=== PATIENT | female | born 1965 | race Two or more races ===

== ENCOUNTER 2023-04-21 16:19 | Inpatient (IN) | payer MEDICAID, OTHER ==
[~2023-04-21] VITALS: Ht 170.2 cm; Wt 80.7 kg
[2023-04-21 17:20] LABS: Basophils # (auto) 0.1 10 ^3/uL (0-0.2); Basophils % (auto) 0.7 % (0.0-2.0); Eosinophils # (auto) 0.3 10 ^3/uL (0-0.8); Eosinophils % (auto) 2.7 % (0.0-7.0); Hematocrit 35.7 % (36.0-46.0); Hemoglobin 12.6 g/dL (12.2-16.2); Lymphocytes # (auto) 1.3 10 ^3/uL (0.4-5.4); Mean Corpuscular Hemoglobin 34.3 pg (28.0-32.0); Mean Corpuscular Hgb Conc. 35.3 g/dL (32.0-36.0); Mean Corpuscular Volume 97.4 fL (80.0-100.0); Monocytes % (auto) 11.2 % (0.0-12.0); Neutrophils # (auto) 6.7 10 ^3/uL (1.6-8.6); Neutrophils % (auto) 71.4 % (37.0-80.0); Nucleated Red Blood Cells % 0.1 %; Red Blood Cells 3.66 10^6/uL (4.0-5.20); Red Cell Distribution Width 13.5 % (11.8-14.3); White Blood Cell 9.4 10^3/uL (4.4-10.8)
[2023-04-21 17:48] LABS: Albumin 2.6 g/dL (3.4-5.0); BUN/Creatinine Ratio 26.3 (10.0-20.0); Calcium 8.2 mg/dL (8.5-10.1); Potassium 4.8 mmol/L (3.5-5.1)
[2023-04-21 17:51] LABS: Bilirubin, Total 1.7 mg/dL (0.2-1.0); Total Protein 6.8 g/dL (6.4-8.2)
[2023-04-21] MEDS ORDERED: SODIUM CHLORIDE 0.9% 500 ML IV ONE (19:00)
[2023-04-21 20:29] LABS: Urine Bacteria NONE SEEN /hpf (None Seen); Urine Blood Negative /uL (Negative); Urine Specific Gravity 1.015 (1.001-1.035); Urine WBC 3 /hpf (0 - 5)
[2023-04-21] MEDS ORDERED: FURO40TA4 PO (21:39)
[2023-04-21] MEDS ORDERED: SPIR100T4 PO (21:39)
[2023-04-21] MEDS ORDERED: METOCLOPRAMIDE HCL 5MG/ml INJ 2ml VIAL IV PRN (21:45)
[2023-04-21] MEDS: ASCORBIC ACID 500 MG TAB PO SCH (22:00)
[2023-04-21] MEDS: MORPHINE SULFATE INJ 2 MG/ml SYRG IV PRN (22:45)
[2023-04-21] MEDS: SODIUM CHLORIDE 0.9% 1,000 ML IV SCH (22:59)
[2023-04-22 06:05] LABS: Basophils # (auto) 0 10 ^3/uL (0-0.2); Basophils % (auto) 0.2 % (0.0-2.0); Hemoglobin 11.4 g/dL (12.2-16.2); Mean Corpuscular Volume 96.6 fL (80.0-100.0); Red Cell Distribution Width 13.1 % (11.8-14.3)
[2023-04-22 06:07] LABS: Eosinophils # (auto) 0.1 10 ^3/uL (0-0.8); Eosinophils % (auto) 1.4 % (0.0-7.0); Hematocrit 31.5 % (36.0-46.0); Lymphocytes # (auto) 1.3 10 ^3/uL (0.4-5.4); Lymphocytes % (auto) 12.7 % (10.0-50.0); Mean Corpuscular Hgb Conc. 36.2 g/dL (32.0-36.0); Monocytes # (auto) 0.9 10 ^3/uL (0-1.3); Monocytes % (auto) 9.2 % (0.0-12.0); Neutrophils # (auto) 7.6 10 ^3/uL (1.6-8.6); Neutrophils % (auto) 76.5 % (37.0-80.0); Red Blood Cells 3.26 10^6/uL (4.0-5.20)
[2023-04-22] MEDS: SODIUM CHLORIDE 0.9% 1,000 ML IV SCH ×3 (06:09→22:42)
[2023-04-22 06:24] LABS: Calcium 7.6 mg/dL (8.5-10.1); Potassium 4.7 mmol/L (3.5-5.1)
[2023-04-22 06:26] LABS: BUN/Creatinine Ratio 31.6 (10.0-20.0)
[2023-04-22 06:39] LABS: Bilirubin, Total 2.8 mg/dL (0.2-1.0); Total Protein 5.7 g/dL (6.4-8.2)
[2023-04-22] MEDS ORDERED: SODIUM CHLORIDE 1 GM TAB PO ONE (07:15)
[2023-04-22] MEDS ORDERED: SODIUM CHL 3% 250 ML IV ONE (08:15)
[2023-04-22 09:06] LABS: Sodium Urine < 5 mmol/L (40-220)
[2023-04-22 09:11] LABS: Creatinine, Urine 75 mg/dL (30.0-125.0); Protein, Urine 6.3 mg/dL (0.0-11.9)
[2023-04-22] MEDS: ASCORBIC ACID 500 MG TAB PO SCH ×2 (09:57→20:26)
[2023-04-22] MEDS: ZINC SULFATE 220mg CAP or TAB PO SCH (09:57)
[2023-04-22] MEDS: MULTIPLE VITAMIN TAB PO SCH (09:57)
[2023-04-22 10:15] LABS: INR 1.24 (0.9-1.15); Partial Thromboplastin Time 33.3 sec (24.6-33.4)
[2023-04-22] MEDS: ENOXAPARIN SOD 40 MG/0.4 ML SYRINGE SC SCH ×2 (11:06→11:08)
[2023-04-22] MEDS ORDERED: LIDOCAINE 1% (LOCAL ANESTH.) PF 5ml SDV ID ONE (12:00)
[2023-04-22 13:25] LABS: BUN/Creatinine Ratio 28.2 (10.0-20.0); Calcium 7.9 mg/dL (8.5-10.1); Potassium 4.3 mmol/L (3.5-5.1)
[2023-04-22 18:18] VITALS: BP 126/66
[2023-04-22 19:52] LABS: BUN/Creatinine Ratio 21.2 (10.0-20.0); Calcium 7.5 mg/dL (8.5-10.1); Potassium 4.2 mmol/L (3.5-5.1)
[2023-04-22] MEDS: SODIUM CHLOR 0.9% PF (SALINE LOCK) 10ML VIAL/SYR IV SCH (20:27)
[2023-04-22 22:00] VITALS: BP 121/59
[2023-04-23] MEDS: MORPHINE SULFATE INJ 2 MG/ml SYRG IV PRN (01:11)
[2023-04-23 05:00] VITALS: BP 110/54
[2023-04-23 06:27] LABS: BUN/Creatinine Ratio 28.6 (10.0-20.0); Calcium 7.5 mg/dL (8.5-10.1); Phosphorus 2.4 mg/dL (2.5-4.90); Potassium 4.8 mmol/L (3.5-5.1)
[2023-04-23] MEDS: SODIUM CHLORIDE 0.9% 1,000 ML IV SCH ×3 (06:51→21:00)
[2023-04-23 09:00] VITALS: BP 108/62
[2023-04-23] MEDS: ZINC SULFATE 220mg CAP or TAB PO SCH (09:04)
[2023-04-23] MEDS: SODIUM CHLOR 0.9% PF (SALINE LOCK) 10ML VIAL/SYR IV SCH ×2 (09:04→21:00)
[2023-04-23] MEDS: MULTIPLE VITAMIN TAB PO SCH (09:04)
[2023-04-23] MEDS: ASCORBIC ACID 500 MG TAB PO SCH ×2 (09:04→21:00)
[2023-04-23] MEDS: ENOXAPARIN SOD 40 MG/0.4 ML SYRINGE SC SCH (09:05)
[2023-04-23] MEDS ORDERED: LACTULOSE 20Gm/30ML SOLN PO ONE (10:15)
[2023-04-23 12:39] VITALS: BP 112/63
[2023-04-23 16:45] VITALS: BP 107/63
[2023-04-23 22:00] VITALS: BP 104/54
[2023-04-24] MEDS: MORPHINE SULFATE INJ 2 MG/ml SYRG IV PRN ×3 (01:04→21:38)
[2023-04-24 05:00] VITALS: BP 102/58
[2023-04-24] MEDS: SODIUM CHLORIDE 0.9% 1,000 ML IV SCH (08:05)
[2023-04-24 08:09] VITALS: BP 100/53
[2023-04-24] MEDS: ENOXAPARIN SOD 40 MG/0.4 ML SYRINGE SC SCH (08:25)
[2023-04-24] MEDS: MULTIPLE VITAMIN TAB PO SCH (08:33)
[2023-04-24] MEDS: SODIUM CHLOR 0.9% PF (SALINE LOCK) 10ML VIAL/SYR IV SCH ×2 (08:33→21:33)
[2023-04-24] MEDS: ZINC SULFATE 220mg CAP or TAB PO SCH (08:33)
[2023-04-24] MEDS: ASCORBIC ACID 500 MG TAB PO SCH ×2 (08:33→21:32)
[2023-04-24 14:09] VITALS: BP 101/59
[2023-04-24] MEDS: SODIUM CHLORIDE 1 GM TAB PO SCH ×2 (14:13→21:32)
[2023-04-24 16:30] VITALS: BP 103/66
[2023-04-24 22:00] VITALS: BP 112/60
[2023-04-25 05:00] VITALS: BP 115/68
[2023-04-25] MEDS: SODIUM CHLORIDE 1 GM TAB PO SCH ×2 (05:36→13:31)
[2023-04-25] MEDS: ENOXAPARIN SOD 40 MG/0.4 ML SYRINGE SC SCH (07:29)
[2023-04-25 09:06] VITALS: BP 96/50
[2023-04-25] MEDS: ZINC SULFATE 220mg CAP or TAB PO SCH (09:09)
[2023-04-25] MEDS: MULTIPLE VITAMIN TAB PO SCH (09:09)
[2023-04-25] MEDS: ASCORBIC ACID 500 MG TAB PO SCH (09:09)
[2023-04-25] MEDS: SODIUM CHLOR 0.9% PF (SALINE LOCK) 10ML VIAL/SYR IV SCH ×2 (09:14→21:49)
[2023-04-25 09:36] LABS: Eosinophils # (auto) 0.2 10 ^3/uL (0-0.8); Eosinophils % (auto) 2.3 % (0.0-7.0); Lymphocytes % (auto) 12.7 % (10.0-50.0); Neutrophils % (auto) 77.1 % (37.0-80.0)
[2023-04-25 09:41] LABS: Basophils # (auto) 0 10 ^3/uL (0-0.2); Basophils % (auto) 0.5 % (0.0-2.0); Hematocrit 30.1 % (36.0-46.0); Hemoglobin 10.5 g/dL (12.2-16.2); Mean Corpuscular Hemoglobin 34.7 pg (28.0-32.0); Mean Corpuscular Volume 99.2 fL (80.0-100.0); Monocytes # (auto) 0.6 10 ^3/uL (0-1.3); Monocytes % (auto) 7.4 % (0.0-12.0); Neutrophils # (auto) 5.8 10 ^3/uL (1.6-8.6); Nucleated Red Blood Cells % 0.1 %; Red Blood Cells 3.03 10^6/uL (4.0-5.20); Red Cell Distribution Width 13.4 % (11.8-14.3); White Blood Cell 7.6 10^3/uL (4.4-10.8)
[2023-04-25 10:03] LABS: Albumin 2.1 g/dL (3.4-5.0); Calcium 7.1 mg/dL (8.5-10.1); Potassium 4.4 mmol/L (3.5-5.1)
[2023-04-25 10:07] LABS: BUN/Creatinine Ratio 14.3 (10.0-20.0); Total Protein 5.7 g/dL (6.4-8.2)
[2023-04-25] MEDS: ALBUMIN 25% 100 ML IV SCH ×2 (11:34→13:26)
[2023-04-25 13:00] VITALS: BP 98/50
[2023-04-25 15:25] VITALS: BP 93/50
[2023-04-25] MEDS ORDERED: FUROSEMIDE 40 MG/4 ML VIAL IV ONE (18:00)
[2023-04-25] MEDS: MAALOX PLUS or MAALOX 30 ML PO PRN (21:49)
[2023-04-25] MEDS: ACETAMINOPHEN 325 MG TAB PO PRN (21:49)
[2023-04-25 22:00] VITALS: BP 92/36
[2023-04-26] MEDS: MAALOX PLUS or MAALOX 30 ML PO PRN (03:59)
[2023-04-26] MEDS: ACETAMINOPHEN 325 MG TAB PO PRN (03:59)
[2023-04-26 05:00] VITALS: BP 102/28
[2023-04-26 08:46] VITALS: BP 94/45
[2023-04-26] MEDS: SODIUM CHLOR 0.9% PF (SALINE LOCK) 10ML VIAL/SYR IV SCH (09:33)
[2023-04-26] MEDS: ENOXAPARIN SOD 40 MG/0.4 ML SYRINGE SC SCH (09:33)
[2023-04-26] MEDS: MULTIPLE VITAMIN TAB PO SCH (09:39)
[2023-04-26] MEDS ORDERED: FUROSEMIDE 40 MG/4 ML VIAL IV SCH (10:00)
[2023-04-26 12:39] VITALS: BP 94/51
== END 2023-04-26 14:31 | disposition home or self-care (01) | DRG 280 ==
LOC: ER 16:19 → OVERFLOW 21:39 → WEST WING 04-22 18:00 → TELE-WESTW 04-23 02:12
PROVIDERS: ADMIT Nurse Practitioner Family; ATTEND Family Medicine
PROC: 02HV33Z Insertion of Infusion Device into Superior Vena Cava, Percutaneous Approach (ICD-10-PCS; principal; 2023-04-22)
PROC: B548ZZA Ultrasonography of Superior Vena Cava, Guidance (ICD-10-PCS; 2023-04-22)
PROC: 0W9G3ZZ Drainage of Peritoneal Cavity, Percutaneous Approach (ICD-10-PCS; 2023-04-25)
DX: K70.31 Alcoholic cirrhosis of liver with ascites (principal); E87.1 Hypo-osmolality and hyponatremia; E86.0 Dehydration; K42.9 Umbilical hernia without obstruction or gangrene; F10.10 Alcohol abuse, uncomplicated; Y90.9 Presence of alcohol in blood, level not specified
CPT/HCPCS: 36415; 36569; 71045; 74176; 76705; 76942; 80048; 80053; 81001; 82570; 83615; 83935; 83986; 84100; 84156; 84300; 84443; 85018; 85025; 85610; 85730; 87205; 89051; 99291; G0378; P9047

== ENCOUNTER 2023-05-10 15:57 | Emergency (ER) | payer MEDICAID ==
[~2023-05-10] VITALS: Ht 170.2 cm; Wt 71.6 kg
[~2023-05-10 15:57] MED LIST: FURO40TA4 PO; SPIR100T4 PO
[2023-05-10 16:27] LABS: Eosinophils # (auto) 0.2 10 ^3/uL (0-0.8); Hemoglobin 11.8 g/dL (12.2-16.2); Lymphocytes # (auto) 1.1 10 ^3/uL (0.4-5.4); White Blood Cell 9.1 10^3/uL (4.4-10.8)
[2023-05-10 16:29] LABS: Basophils # (auto) 0.1 10 ^3/uL (0-0.2); Basophils % (auto) 0.7 % (0.0-2.0); Eosinophils % (auto) 2.3 % (0.0-7.0); Hematocrit 34.1 % (36.0-46.0); Lymphocytes % (auto) 11.9 % (10.0-50.0); Mean Corpuscular Hemoglobin 34.3 pg (28.0-32.0); Mean Corpuscular Hgb Conc. 34.8 g/dL (32.0-36.0); Mean Corpuscular Volume 98.5 fL (80.0-100.0); Monocytes % (auto) 11.2 % (0.0-12.0); Neutrophils # (auto) 6.7 10 ^3/uL (1.6-8.6); Neutrophils % (auto) 73.9 % (37.0-80.0); Nucleated Red Blood Cells % 0.1 %; Red Blood Cells 3.46 10^6/uL (4.0-5.20); Red Cell Distribution Width 13.9 % (11.8-14.3)
[2023-05-10 16:42] LABS: Albumin 2.6 g/dL (3.4-5.0); Calcium 8.2 mg/dL (8.5-10.1); Potassium 5.3 mmol/L (3.5-5.1)
[2023-05-10 16:46] LABS: Bilirubin, Total 1.6 mg/dL (0.2-1.0); Total Protein 6.2 g/dL (6.4-8.2)
[2023-05-10 17:30] LABS: Urine Bacteria NONE SEEN /hpf (None Seen); Urine Blood Negative /uL (Negative); Urine Specific Gravity 1.017 (1.001-1.035); Urine WBC 15 /hpf (0 - 5)
[2023-05-10] MEDS ORDERED: SODIUM CHLORIDE 0.9% 1,000 ML IV ONE (17:45)
[2023-05-10 18:36] VITALS: BP 120/57
== END 2023-05-10 18:35 | disposition home or self-care (01) ==
LOC: ER 15:57
DX: E87.1 Hypo-osmolality and hyponatremia (principal)
CPT/HCPCS: 36415; 80053; 81001; 85025; 99283; J7030

== ENCOUNTER 2023-08-07 04:15 | Inpatient (IN) | payer MEDICAID ==
[~2023-08-07] VITALS: Ht 170.2 cm; Wt 80.0 kg
[2023-08-07 04:40] VITALS: PULSE 73; RESP 25; O2SAT 100
[2023-08-07 06:25] LABS: Basophils # (auto) 0 10 ^3/uL (0-0.2); Basophils % (auto) 0.2 % (0.0-2.0); Eosinophils # (auto) 0 10 ^3/uL (0-0.8); Eosinophils % (auto) 0.1 % (0.0-7.0); Hematocrit 38.5 % (36.0-46.0); Hemoglobin 13.4 g/dL (12.2-16.2); Lymphocytes # (auto) 0.6 10 ^3/uL (0.4-5.4); Lymphocytes % (auto) 5.5 % (10.0-50.0); Mean Corpuscular Hemoglobin 33.4 pg (28.0-32.0); Mean Corpuscular Hgb Conc. 34.9 g/dL (32.0-36.0); Mean Corpuscular Volume 95.5 fL (80.0-100.0); Monocytes # (auto) 0.6 10 ^3/uL (0-1.3); Monocytes % (auto) 5.8 % (0.0-12.0); Neutrophils # (auto) 9.2 10 ^3/uL (1.6-8.6); Neutrophils % (auto) 88.4 % (37.0-80.0); Nucleated Red Blood Cells % 0.1 %; Red Blood Cells 4.03 10^6/uL (4.0-5.20); Red Cell Distribution Width 14.4 % (11.8-14.3); White Blood Cell 10.3 10^3/uL (4.4-10.8)
[2023-08-07 06:38] LABS: Alanine Aminotransferase 44 U/L (7-40); Albumin 2.9 g/dL (3.2-4.8); Alkaline Phosphatase 131 U/L (46-116); Anion Gap 6 (5-15); Aspartate Aminotransferase 54 U/L (13-40); BUN/Creatinine Ratio 18.5 (10.0-20.0); Bilirubin, Total 2.3 mg/dL (0.2-1.0); Blood Urea Nitrogen 10 mg/dL (9-23); Calcium 8.1 mg/dL (8.7-10.4); Carbon Dioxide 25 mmol/L (20-30); Chloride 98 mmol/L (98-107); Glucose 123 mg/dL (74-106); Lipase 27 U/L (12-53); Sodium 129 mmol/L (136-145); Total Protein 5.6 g/dL (5.7-8.2)
[2023-08-07] MEDS ORDERED: ONDANSETRON HCL 4 MG/2 ML VIAL IV ONE ×2 (06:45→21:00)
[2023-08-07] MEDS ORDERED: MORPHINE SULFATE 4 MG/ML SYR/VIAL IV ONE ×2 (06:45→09:15)
[2023-08-07] MEDS ORDERED: PANTOPRAZOLE 40 MG/10 ML VIAL INJ IV ONE (06:45)
[2023-08-07 07:49] LABS: INR 1.37 (0.9-1.15); Partial Thromboplastin Time 31.6 SEC (24.5-34.5); Prothrombin Time 14.1 sec (9.3-11.8)
[2023-08-07 08:21] VITALS: PULSE 73; RESP 14; O2SAT 99
[2023-08-07 09:08] LABS: Urine Bacteria NONE SEEN /hpf (None Seen); Urine Blood Negative /uL (Negative); Urine Clarity Clear (Clear); Urine Color Yellow (Yellow); Urine Mucus FEW (None Seen); Urine Protein, UAD Negative (Negative); Urine Specific Gravity 1.019 (1.001-1.035); Urine Urobilinogen Normal (Negative); Urine WBC 3 /hpf (0 - 5); Urine pH 5.5 (5.0-8.0)
[2023-08-07] MEDS ORDERED: METOCLOPRAMIDE HCL 5MG/ml INJ 2ml VIAL IV ONE (09:30)
[2023-08-07] MEDS ORDERED: MORPHINE SULFATE INJ 2 MG/ml SYRG IV PRN ×2 (09:45)
[2023-08-07] MEDS ORDERED: NITROGLYCERIN 0.4 MG SL TAB SL PRN (09:45)
[2023-08-07] MEDS ORDERED: ONDANSETRON HCL 4 MG/2 ML VIAL IV PRN (09:45)
[2023-08-07] MEDS ORDERED: PANTOPRAZOLE 40 MG/10 ML VIAL INJ IV SCH (10:00)
[2023-08-07] MEDS ORDERED: LACT10SO3 PO (11:55)
[2023-08-07] MEDS ORDERED: RIFA550T PO (11:55)
[2023-08-07] MEDS ORDERED: traMADol HCL 50 MG TAB PO PRN (12:00)
[2023-08-07] MEDS: SODIUM CHLORIDE 0.9% 1,000 ML IV SCH ×3 (12:13→23:05)
[2023-08-07 20:00] VITALS: TEMP 97.7
[2023-08-07] MEDS ORDERED: HYDROmorphone HCL 2 MG/ML VL/or syr IV ONE (21:00)
[2023-08-07 22:00] VITALS: BP 125/54; PULSE 84; RESP 14; O2SAT 98
[2023-08-07] MEDS ORDERED: rifAXIMin 550 MG TAB PO SCH (22:00)
[2023-08-08] MEDS ORDERED: LACTULOSE 20Gm/30ML SOLN PO SCH (10:00)
[2023-08-08] MEDS ORDERED: PATIENTS OWN MEDICATION (Lactulose 30 ML) PO SCH (10:00)
== END 2023-08-07 23:01 | disposition left against medical advice (07) | DRG 254 ==
LOC: ER 04:15 → EDBD 04:15 → TELE 09:46
PROVIDERS: ADMIT Nurse Practitioner Family; ATTEND Nurse Practitioner Acute Care
DX: K42.0 Umbilical hernia with obstruction, without gangrene (principal); K70.31 Alcoholic cirrhosis of liver with ascites; E87.1 Hypo-osmolality and hyponatremia; Z53.29 Procedure and treatment not carried out because of patient's decision for other reasons; Z87.891 Personal history of nicotine dependence; F10.10 Alcohol abuse, uncomplicated
CPT/HCPCS: 36415; 74018; 74176; 80053; 81001; 82140; 83690; 83735; 84484; 85025; 85610; 85730; 86850; 86900; 86901; 93005; 96374; 96375; C9113; G0378; J2405